=== PATIENT | male | born 1990 | race Caucasian/White ===

== ENCOUNTER 2024-10-11 22:57 | Emergency (ER) | payer SELFPAY ==
[~2024-10-11] VITALS: Ht 177.8 cm; Wt 84.0 kg
[2024-10-11 23:06] VITALS: TEMP 36.9; O2SAT 100
[2024-10-12] MEDS: LORAZEPAM 0.5MG TABLET PO ONE (02:12)
[2024-10-12 02:35] VITALS: BP 126/70; PULSE 76; RESP 18
[2024-10-12] MEDS: KETOROLAC 15MG/ML VIAL IM ONE (02:35)
[2024-10-12] MEDS: LIDOCAINE 5% PATCH TOP SCH (02:35)
[2024-10-12] MEDS ORDERED: LIDO-53 TP (03:42)
[2024-10-12] MEDS ORDERED: NAPR-1176 MT (03:42)
== END 2024-10-12 04:16 | disposition home or self-care (01) ==
LOC: ER 22:57
DX: G89.29 Other chronic pain (principal); M54.50 Low back pain, unspecified; F41.9 Anxiety disorder, unspecified; Z79.899 Other long term (current) drug therapy; Z79.1 Long term (current) use of non-steroidal anti-inflammatories (NSAID)
CPT/HCPCS: 99283; 96372; J1885